=== PATIENT | male | born 1970 | race African-American/Black ===

== ENCOUNTER 2022-08-14 07:10 | Emergency (ER) | payer OTHER ==
[2022-08-14 07:35] VITALS: BP 109/67; PULSE 69; RESP 18; TEMP 98.3; BMI 27.8
[2022-08-14 08:21] LABS: PH,URINE 5.5 (5.0-8.0); URINE APPEARANCE CLEAR; URINE BILIRUBIN NEGATIVE (NEGATIVE); URINE COLOR YELLOW; URINE GLUCOSE (UA) NEGATIVE (NEGATIVE); URINE KETONE NEGATIVE (NEGATIVE); URINE LEUK ESTERASE NEGATIVE (NEGATIVE); URINE NITRITE NEGATIVE (NEGATIVE); URINE PROTEIN NEGATIVE (NEGATIVE); URINE UROBILINOGEN 0.2 mg/dL (0.2-1.0)
== END 2022-08-14 09:30 | disposition home or self-care (01) ==
LOC: JER 07:10
DX: M54.50 Low back pain, unspecified (principal)
CPT/HCPCS: 76775-TC; 81003; 87086; 99284-25